=== PATIENT | female | born 1995 | race Two or more races ===

== ENCOUNTER 2017-08-22 11:36 | Emergency (ER) | payer SELFPAY ==
[2017-08-22 12:45] VITALS: TEMP 99.7; O2SAT 99
--- NOTE | 2017-08-22 13:53 | ED PDOC ---
Arrival/HPI - General Chief Complaint: Allergic Reaction Time Seen by Provider: 08/22/17 12:59 Historian: Patient - History of Present Illness Narrative History of Present Illness (Text): 08/22/17 13:50 22yo female with no Past medical history who present with 3days history of pruritic rash, subjective fever, myalgia. States rash started from the face and spread to her trunk. She notes that she did not have history of measles and thinks is measles but came to Emergency department for confirmation. She report pain to the rash on her central forehead. States she scratched the rash. She denies any new inciting factors, sick contact, neck pain, nuchal ridigity, any other complaint. Past Medical History - Provider Review Nursing Documentation Reviewed: Yes - Infectious Disease Hx of Infectious Diseases: None - Reproductive Menopause: No - Psychiatric Hx Substance Use: No - Anesthesia Hx Anesthesia: No Family/Social History - Physician Review Nursing Documentation Reviewed: Yes Family/Social History: Unknown Family HX Smoking Status: Unknown If Ever Smoked Hx Alcohol Use: No Hx Substance Use: No Allergies/Home Meds Allergies/Adverse Reactions: Allergies No Known Allergies Allergy (Verified 08/22/17 12:45) Review of Systems - Physician Review All systems were reviewed & negative as marked: Yes - Review of Systems Constitutional: Fevers Eyes: Normal ENT: Normal Respiratory: Normal Cardiovascular: Normal Gastrointestinal: Normal Genitourinary Female: Normal Musculoskeletal: Normal, Myalgias Skin: Rash, Pruritis Neurological: Normal Endocrine: Normal Hemo/Lymphatic: Normal Psychiatric: Normal Physical Exam Vital Signs Reviewed: Yes Vital Signs Temp Pulse Resp BP Pulse Ox 08/22/17 14:05 90 18 119/77 99 08/22/17 12:40 99.7 F H 99 H 20 110/74 99 Temperature: Febrile Blood Pressure: Normal Pulse: Regular Respiratory Rate: Normal Appearance: Positive for: Well-Appearing, Non-Toxic, Comfortable Pain Distress: None Mental Status: Positive for: Alert and Oriented X 3 - Systems Exam Head: Present: Atraumatic, Normocephalic Pupils: Present: PERRL Extroacular Muscles: Present: EOMI Conjunctiva: Present: Normal Mouth: Present: Moist Mucous Membranes Neck: Present: Normal Range of Motion Respiratory/Chest: Present: Clear to Auscultation, Good Air Exchange. No: Respiratory Distress, Accessory Muscle Use Cardiovascular: Present: Regular Rate and Rhythm, Normal S1, S2. No: Murmurs Abdomen: No: Tenderness, Distention, Peritoneal Signs Back: Present: Normal Inspection Upper Extremity: Present: Normal Inspection. No: Cyanosis, Edema Lower Extremity: Present: Normal Inspection. No: Edema Neurological: Present: GCS=15, CN II-XII Intact, Speech Normal Skin: Present: Warm, Dry, Rashes (Raised erythematous papular rash noted to face and trunk. vesicular rash noted on central forehead with surrounding erythema.), Normal Color Psychiatric: Present: Alert, Oriented x 3, Normal Insight, Normal Concentration Medical Decision Making ED Course and Treatment: 08/22/17 20:20 Pt had low grade temp and rash is suspicious for measles. This is however viral and require symptomatic treatment. The is DW the pt. She was placed on abx secondary to infected rash noted on her forehead. she was advised to f/u with Encapsulator. Disposition/Present on Arrival - Present on Arrival Any Indicators Present on Arrival: No History of DVT/PE: No History of Uncontrolled Diabetes: No Urinary Catheter: No History of Decub. Ulcer: No History Surgical Site Infection Following: None - Disposition Have Diagnosis and Disposition been Completed?: Yes Diagnosis: Rash, Cellulitis Disposition: HOME/ ROUTINE Disposition Time: 14:00 Patient Plan: Discharge Condition: STABLE Discharge Instructions (ExitCare): Skin Rash (DC), Cellulitis (Skin Infection) , Adult (DC), Cellulitis (ED) Additional Instructions: Follow up with your doctor/Encapsulator Return to Emergency department or any new or worsening symptoms Prescriptions: Cephalexin [Keflex] 500 mg PO TID #30 capsule Referrals: Melvina Bey MD [Staff Provider] - Follow up with primary Forms: [employer] (Wolof)
[2017-08-22 14:07] VITALS: BP 119/77; PULSE 90; RESP 18
== END 2017-08-22 13:58 | disposition home or self-care (01) ==
LOC: ED 11:36
DX: R21 Rash and other nonspecific skin eruption (principal); L03.90 Cellulitis, unspecified

== ENCOUNTER 2018-06-30 03:40 | Emergency (ER) | payer OTHER ==
[2018-06-30 03:51] VITALS: TEMP 98.2; O2SAT 97
--- NOTE | 2018-06-30 04:25 | ED PDOC ---
Arrival/HPI - General Chief Complaint: Back Pain Time Seen by Provider: 06/30/18 03:45 Historian: Patient - History of Present Illness Narrative History of Present Illness (Text): 06/30/18 04:22 23 year old Mohawk-speaking female, whose with no other significant past medical history, presents to the emergency department accompanied by complaining of body aches and headache. Patient reports she is 7 months pregnan t. 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 Patient denies any fever, chills, chest pain, shortness of breath, nausea, vomiting, diarrhea, urinary symptoms, vaginal discharge, back pain, neck pain, dizziness, or any other complaints. Symptom Onset: Gradual Symptom Course: Unchanged Activities at Onset: Light Context: Home Past Medical History - Provider Review Nursing Documentation Reviewed: Yes - Infectious Disease Hx of Infectious Diseases: None - Psychiatric Hx Substance Use: No - Anesthesia Hx Anesthesia: No Family/Social History - Physician Review Nursing Documentation Reviewed: Yes Family/Social History: No Known Family HX Smoking Status: Never Smoked Hx Alcohol Use: No Hx Substance Use: No Allergies/Home Meds Allergies/Adverse Reactions: Allergies No Known Allergies Allergy (Verified 02/25/18 14:13) Review of Systems - Physician Review All systems were reviewed & negative as marked: Yes - Review of Systems Constitutional: absent: Fevers, Other (chills) Respiratory: absent: SOB Cardiovascular: absent: Chest Pain Gastrointestinal: absent: Diarrhea, Nausea, Vomiting Genitourinary Female: absent: Dysuria, Frequency, Hematuria, Vaginal Discharge Musculoskeletal: Other (body aches). absent: Back Pain, Neck Pain Neurological: Headache. absent: Dizziness Physical Exam Vital Signs Reviewed: Yes Vital Signs Temp Pulse Resp BP Pulse Ox 06/30/18 03:48 98.2 F 95 H 18 104/58 L 97 Temperature: Afebrile Blood Pressure: Hypotensive Pulse: Regular Respiratory Rate: Normal Appearance: Positive for: Well-Appearing, Non-Toxic, Comfortable Pain Distress: None Mental Status: Positive for: Alert and Oriented X 3 - Systems Exam Head: Present: Atraumatic, Normocephalic Pupils: Present: PERRL Extroacular Muscles: Present: EOMI Conjunctiva: Present: Normal Mouth: Present: Moist Mucous Membranes Neck: Present: Normal Range of Motion Respiratory/Chest: Present: Clear to Auscultation, Good Air Exchange. No: Respiratory Distress, Accessory Muscle Use Cardiovascular: Present: Regular Rate and Rhythm, Normal S1, S2. No: Murmurs Abdomen: Present: Distention (consistent to gestational age). No: Tenderness, Peritoneal Signs Back: Present: Normal Inspection Upper Extremity: Present: Normal Inspection. No: Cyanosis, Edema Lower Extremity: Present: Normal Inspection. No: Edema Neurological: Present: GCS=15, CN II-XII Intact, Speech Normal Skin: Present: Warm, Dry, Normal Color. No: Rashes Psychiatric: Present: Alert, Oriented x 3, Normal Insight, Normal Concentration Medical Decision Making ED Course and Treatment: 06/30/18 04:27 Impression: 23 year old female whose 7 months presents complaining of body aches and headache. Plan: -- labs -- Age US -- Tylenol -- Urinalysis -- Reassess and disposition Prior Visits: Notes and results from previous visits were reviewed. Progress Notes: age US Electronically signed on Jun 30, 2018 6:00:15 AM EDT by: Shaan Logan M.D. Findings: Estimated gestational age 25 weeks and 4 days. heart rate 156 beats per minute. Impression: Single, live intrauterine gestation. No abnormality is seen. 06/30/18 06:20 On re-evaluation, patient is in no acute distress. I have discussed the results and plan with the patient, who expresses understanding. Patient in agreement with plan to be discharged home. Patient is stable for discharge. Patient was instructed to follow up with physician or return if symptoms worsen or new concerning symptoms arise. - Lab Interpretations I have reviewed the lab results: Yes - RAD Interpretation Nursing Instructor: Radiologist - Scribe Statement The provider has reviewed the documentation as recorded by the Gurwinder Ochoa Provider Scribe Attestation: All medical record entries made by the Sawyeribe were at my direction and personally dictated by me. I have reviewed the chart and agree that the record accurately reflects my personal performance of the history, physical exam, medical decision making, and the department course for this patient. I have also personally directed, reviewed, and agree with the discharge instructions and disposition. Disposition/Present on Arrival - Present on Arrival Any Indicators Present on Arrival: No History of DVT/PE: No History of Uncontrolled Diabetes: No Urinary Catheter: No History of Decub. Ulcer: No History Surgical Site Infection Following: None - Disposition Have Diagnosis and Disposition been Completed?: Yes Diagnosis: Headache, UTI (urinary tract infection) Disposition: HOME/ ROUTINE Disposition Time: 06:23 Patient Plan: Discharge Patient Problems: Current Active Problems Problem Status Onset Headache Acute Urinary tract infection Acute Condition: GOOD Discharge Instructions (ExitCare): Tension Headache (DC), Urinary Tract Infection, Adult (DC) Additional Instructions: Take meds as prescribed/Tylenol as directed/follow up with your doctor this week Prescriptions: Nitrofurantoin Macrocrystals [Macrobid] 100 mg PO BID #10 cap Forms: [employer] (Greek)
[2018-06-30 05:41] LABS: HEMOGLOBIN 11.2 g/dL (12.0-16.0); MEAN CELL VOLUME 89.8 fl (80.0-105.0); RBC 3.74 10^6/uL (3.5-6.1); WHITE BLOOD COUNT 7.6 10^3/uL (4.5-11.0)
[2018-06-30 05:42] LABS: MEAN CORPUSCULAR HEMOGLOBIN 29.9 pg (25.0-35.0); MEAN CORPUSCULAR HGB CONC 33.3 g/dl (31.0-37.0); RED CELL DISTRIBUTION WIDTH 13.2 % (11.5-14.5)
[2018-06-30 05:44] LABS: PH,URINE 6.5 (4.7-8.0); URINE APPEARANCE CLEAR (CLEAR); URINE BILIRUBIN NEGATIVE (NEGATIVE); URINE BLOOD NEGATIVE (NEGATIVE); URINE COLOR YELLOW (YELLOW); URINE GLUCOSE (UA) NEGATIVE (NEGATIVE); URINE LEUKOCYTE ESTERASE MODERATE Leu/uL (NEGATIVE); URINE PROTEIN NEGATIVE mg/dL (<30 mg/dL); URINE UROBILINOGEN 0.2 E.U./dL (<1 E.U./dL)
[2018-06-30 05:46] LABS: BLOOD UREA NITROGEN 6 mg/dL (7-21); GFR NON-AFRICAN AMERICAN > 60
[2018-06-30 05:47] LABS: ALBUMIN 3.7 g/dL (3.0-4.8); ALT/SGPT 13 U/L (7-56); AST/SGOT 22 U/L (14-36)
[2018-06-30 06:12] LABS: URINE BACTERIA FEW /hpf; URINE EPITHELIAL CELLS 0 - 2 /hpf (0-5); URINE RBC 0 - 2 /hpf (0-2)
[2018-06-30 06:33] VITALS: BP 92/54; PULSE 74; RESP 16
--- NOTE | 2018-06-30 08:57 | US ---
Date of service: 06/30/2018 PROCEDURE: OB Pelvic Ultrasound HISTORY: body pain COMPARISON: None available. FINDINGS: UTERUS: Single Live intrauterine fetus in breech presentation. BPD: 6.4 cm corresponding to 25 weeks and 6 days of gestational age. HC: 23.8 cm corresponding to 25 weeks and 6 days of gestational age. AC: 20.8 cm corresponding to 25 weeks and 3 days of gestational age. FL: 4.6 cm corresponding to 25 weeks and 0 day of gestational age. age (Ultrasound estimated): 25 weeks and 4 days Date of delivery (Ultrasound estimated) : 10/09/2018 Heart rate: 156 bpm. Kacie-gestational hemorrhage: None. Placenta is posterior. CERVIX: Long and closed. No cervical abnormality seen. RIGHT OVARY: Not visualized. LEFT OVARY: Not visualized. FREE FLUID: None. OTHER FINDINGS: None. IMPRESSION: Single live intrauterine fetus in breech presentation with mean gestational age of 25 weeks and 4 days. Placenta is posterior. The estimated date of delivery by ultrasound is 10/09/2018. Please note this is a limited OB ultrasound performed on an emergent basis. Clinical follow-up and anatomic survey is advised as clinically indicated. A preliminary report was provided by [facility]. The
== END 2018-06-30 06:32 | disposition home or self-care (01) ==
LOC: ED 03:40
DX: O23.42 Unspecified infection of urinary tract in pregnancy, second trimester (principal); O26.892 Other specified pregnancy related conditions, second trimester; Z3A.25 25 weeks gestation of pregnancy; R51 Headache